=== PATIENT | female | born 1985 | race Caucasian/White ===

== ENCOUNTER 2019-11-14 11:03 | Emergency (ER) | payer OTHER, SELFPAY ==
--- NOTE | 2019-11-14 11:56 | ED.URI ---
HPI - URI/Sore Throat General Chief Complaint: Upper Respiratory Infection Stated Complaint: sore throat/cough Time Seen by Provider: 11/14/19 11:56 Source: patient and RN notes reviewed Mode of arrival: ambulatory Limitations: no limitations History of Present Illness HPI Narrative: A 34 y/o female, who is a nonsmoker and nondrinker, presents to the with a worsening sore throat for the past week. She reports an associated green productive cough and nasal congestion. She notes that swallowing aggravates her sore throat. She also notes she hasn't been able to sleep d/t her cough. She denies any fevers, ear ache, definite rhinorrhea,; or any other medical complaints at this time. 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 MD elicited complaint: cough, sore throat and nasal congestion Onset (ago): week(s) (1) Consistency: progressively worsening Description of mucous: green Exacerbating factors: swallowing Associated symptoms: denies other symptoms Related Data Allergies Allergy/AdvReac Type Severity Reaction Status Date / Time doxycycline Allergy Unknown Verified 11/27/11 14:02 Sulfa (Sulfonamide Allergy Unknown Verified 11/27/11 14:03 Antibiotics) Review of Systems Review of Systems: Narrative: General/Constitutional: No weight loss,fever Eyes: N0: Redness,discharge Ears/Nose/Throat: No: Epistaxis,ear discharge, ear ache, or rhinorrhea. Reports a sore throat and nasal congestion. Respiratory: Denies: Hemoptysis. Reports a green productive cough. Gastrointestinal: No Vomiting, Bleeding-rectal Skin: No Lumps, eruption Neurologic: No Focal Weakness,Sz Hematologic: Denies: Petechiae/Purpura Psychiatric: No: Suicida ideationl All Other Systems: Reviewed and Negative [facility] Past Medical History Medical History (Updated 11/14/19 @ 14:17 by Bryan Griffiths MD) Healthy female Surgical History Surgical History (Updated 11/14/19 @ 12:04 by Milton Lopez) No history of previous surgery Family History Family History Mother Patient's mother is in good health Social History Social History Smoking status: Never smoker Second hand tobacco smoke exposure: No Alcohol intake: never Gender identity (if verbalized by the patient): Female Exam Narrative: Exam Narrative: General Appearance: Well appearing, Well nourished EYE: PERRLA, Conjunctiva clear Ears: Auditory canal normal, TM normal Nose: Rhinorrhea, Mucousal erythema Mouth/Throat: MM moist, Uvula midline, Pharyngeal erythema Neck: Supple, No adenopathy Respiratory: No respiratory distress, Breath sounds equal, Clear to auscultation Cardiovascular: RRR, No JVD Musculoskeletal: Non tender, Normal strength Skin: Warm, Dry Neurological: A&O x3, CN II-XII intact Psychiatric: Normal mood, Normal affect MDM - URI/Sore Throat Lab Data Labs: Strep Screen Presumptive Negative *(Reference Range: Negative)* Discharge Plan Discharge Clinical Impression: Pharyngitis Qualifiers: Pharyngitis/tonsillitis etiology: unspecified etiology Qualified Code(s): J02.9 - Acute pharyngitis, unspecified Patient Disposition: Home, Self-Care Condition: Stable Instructions: Antibiotic Form, Pharyngitis (ED) Prescriptions: New Lidocaine Viscous 2 % solution 5 ml MUCOUS MEM QID PRN (Reason: pain) Qty: 100 RF: 0 cefuroxime axetil 500 mg tablet 500 mg PO Q12H Qty: 14 RF: 0 codeine-guaifenesin 10-100 mg/5 mL liquid 7.5 ml PO Q6H PRN (Reason: cough) Qty: 118 RF: 0 Follow-up/Referrals: Mk Olsen DO [Primary Care Provider] - Discharge Date/Time: 11/14/19 12:05
== END 2019-11-14 12:05 | disposition home or self-care (01) ==
PROVIDERS: Emergency Provider Emergency Medicine; PCP Internal Medicine
DX: J02.9 Acute pharyngitis, unspecified (principal)
CPT/HCPCS: 87081; 87880; 99213; G0463

== ENCOUNTER → 2021-11-21 02:39 | Outpatient (CLI) | payer BC, SELFPAY ==
[2021-11-21 12:37] LABS: SARS-CoV-2 RNA PCR Negative
== END ==
PROVIDERS: PCP Physician Assistant; Visit Provider Internal Medicine Gastroenterology
DX: Z01.812 Encounter for preprocedural laboratory examination (principal); Z20.822 Contact with and (suspected) exposure to COVID-19
CPT/HCPCS: C9803; U0003; U0005

== ENCOUNTER 2021-11-24 01:20 | Day surgery (SDC) | payer BC, SELFPAY ==
[2021-11-13 13:15] VITALS: BMI 22.7
[2021-11-24 12:28] VITALS: BP 116/70; PULSE 75; RESP 20; TEMP 36.3; O2SAT 100; BMI 22.2
[2021-11-24] MEDS: LACTATED RINGERS 1,000 ML 150 ML IV CONT (12:30)
--- NOTE | 2021-11-24 13:08 | WPDANESEPPF ---
Anes - Initial Pre Proc Eval Procedure: Operation Date: 11/24/21 13:30 Proposed Procedures p Colonoscopy - Ronny Linder MD Date/Time: 11/24/21 13:08 Surgeon: Ronny Linder MD Pre Op Diagnosis: occult GI bleed Patient Data Age: 36 Gender: F Height: 1.78 m Weight: 70.4 kg Last Vital Signs Temp 97.4 F L 11/24/21 12:28 Pulse 75 11/24/21 12:28 Resp 20 11/24/21 12:28 BP 116/70 11/24/21 12:28 Pulse Ox 100 11/24/21 12:28 Allergies Allergy/AdvReac Type Severity Reaction Status Date / Time doxycycline Allergy Unknown Difficulty Verified 11/24/21 12:23 Breathing Sulfa (Sulfonamide Allergy Unknown Rash Verified 11/24/21 12:23 Antibiotics) Home Medications Medication Instructions Recorded Confirmed Type No Home Medications 11/13/21 11/24/21 History Patient hx anesthesia problems: none Family hx anesthesia problems: none Results Review: All pre-operative results and documents have been reviewed as part of the pre-operative evaluation. [facility] Past Medical History Medical History (Updated 11/15/19 @ 00:00 by Nay Smith) Healthy female Surgical History Surgical History (Updated 11/14/19 @ 12:04 by Milton Lopez) No history of previous surgery Family History Family History Mother Patient's mother is in good health Social History Social History Smoking status: Never smoker Second hand tobacco smoke exposure: No Alcohol intake: never Substance use: never Substance use type: does not use Living arrangements: with family Gender identity (if verbalized by the patient): Female Spiritual care concerns: No Anes - Eval Final PreProcedure Day of Procedure 11/24/21 13:08 Patient weight: normal Heart: regular rate and rhythm Lungs: clear to auscultation Airway: Mallampati scale class II Neurological: alert and oriented Last oral intake: >/= 8 hours ASA classification: II Emergent: no Anesthetic plan: proceed Anesthesia type and monitoring: general GIVS and standard monitoring Results Review: All pre-operative results and documents have been reviewed as part of the pre-operative evaluation. Informed Consent: The patient's anesthetic plan and its attendant risks and benefits were discussed with the patient/family/POA. Questions were solicited and answers provided to the satisfaction of the patient/family/POA.
--- NOTE | 2021-11-24 13:25 | PM.HPGS ---
History of Present Illness History of Present Illness Consent: Risks, benefits, and alternatives have been discussed and questions answered. Patient agrees to proceed with procedure. Chief complaint: occult GI bleed Narrative: Galina Holden is a 36 year old female with intermittent hematochezia after having BM, never had colonoscopy, no family history of CRC Review of Systems Constitutional: Constitutional: Denies headache(s) and Denies weakness Eyes: Eyes: Denies blurry vision ENT: Reports Normal hearing present, Denies headache(s) and Denies neck pain Cardiovascular: Cardiovascular: Denies chest pain and Denies dyspnea Respiratory: Respiratory: Denies dyspnea Gastrointestinal: Gastrointestinal: Reports no additional gastrointestinal complaints Genitourinary: Genitourinary: Denies dysuria Musculoskeletal: Musculoskeletal: Denies neck pain Integumentary/Breasts: Skin/Breast: Denies dry skin Neurologic: Reports Normal hearing present, Denies headache(s) and Denies weakness Psychiatric: Psychiatric: Denies anxiety Endocrine: Endocrine: Denies change in body appearance Hematologic/Lymphatic: Hematologic/Lymphatic: Denies easy bleeding Allergic/Immunologic: Allergic/Immunologic: Denies urticaria PMFSH Past Medical History Medical History (Updated 11/24/21 @ 13:25 by Ronny Linder MD) Healthy female Hematochezia Surgical History Surgical History (Updated 11/14/19 @ 12:04 by Milton Lopez) No history of previous surgery Family History Family History Mother Patient's mother is in good health Social History Social History Smoking status: Never smoker Second hand tobacco smoke exposure: No Alcohol intake: never Substance use: never Substance use type: does not use Living arrangements: with family Gender identity (if verbalized by the patient): Female Spiritual care concerns: No Meds Home Medications and Allergies Home Medications Medication Instructions Recorded Confirmed Type No Home Medications 11/13/21 11/24/21 History Allergies Allergy/AdvReac Type Severity Reaction Status Date / Time doxycycline Allergy Unknown Difficulty Verified 11/24/21 12:23 Breathing Sulfa (Sulfonamide Allergy Unknown Rash Verified 11/24/21 12:23 Antibiotics) Vital Signs Vital Signs - 24 hr 11/24/21 12:28 Temperature 97.4 F L Pulse Rate 75 Respiratory Rate 20 Blood Pressure 116/70 Pulse Oximetry 100 Exam Const: General: comfortable and no acute distress HENMT: General nose exam: Normal nares present Eyes: General: appearance normal, both eyes and all related structures Neck: Neck: no JVD Resp: Auscultation: clear to auscultation bilaterally Cardio: Rate: regular rate Rhythm: regular rhythm GI: Inspection: non-distended GI Palp: Yes Soft to palpation Skin: General skin exam: normal color Neuro: General: gait normal Speech: normal speech Extrem: General: normal to inspection Psych: Mental Status: mental status grossly normal Assessment and Plan Assessment and plan (1) Hematochezia: Code(s): K92.1 - Melena Status: Acute Assessment and Plan: will assess with colonoscopy
[2021-11-24 13:44] VITALS: BP 104/67; PULSE 78; RESP 19; O2SAT 99
[2021-11-24 13:54] VITALS: BP 98/52; PULSE 72; RESP 15; O2SAT 100
[2021-11-24 14:04] VITALS: BP 117/75; PULSE 72; RESP 20; O2SAT 100
== END 2021-11-24 14:12 | disposition home or self-care (01) ==
PROVIDERS: PCP Physician Assistant; Visit Provider Internal Medicine Gastroenterology
PROC: 0DJD8ZZ Inspection of Lower Intestinal Tract, Via Natural or Artificial Opening Endoscopic (ICD-10-PCS; CPT 45378; principal; 2021-11-24 13:30)
DX: K92.1 Melena (principal); K64.8 Other hemorrhoids
CPT/HCPCS: 45378; J2704; J7120

== ENCOUNTER 2022-12-12 10:20 | Emergency (ER) | payer BC, SELFPAY ==
[2022-12-12 10:43] VITALS: BP 104/64; PULSE 65; RESP 16; TEMP 36.9; O2SAT 100
--- NOTE | 2022-12-12 10:59 | ED.URI ---
HPI - URI/Sore Throat General Chief Complaint: Upper Respiratory Infection Stated Complaint: sorethroat Time Seen by Provider: 12/12/22 10:45 Source: patient Mode of arrival: ambulatory Limitations: no limitations History of Present Illness HPI Narrative: Ms. Holden is a 37-year-old female patient presenting to the clinic today with complaints of sore throat that started this morning. She denies any fever chills. Has had recurrent pharyngitis over the last several months and has been placed on 2 or 3 different antibiotics. States she just finished azithromycin 5 days ago. MD elicited complaint: sore throat and nasal congestion Related Data Allergies Allergy/AdvReac Type Severity Reaction Status Date / Time doxycycline Allergy Unknown Difficulty Verified 12/12/22 10:50 Breathing Sulfa (Sulfonamide Allergy Unknown Rash Verified 12/12/22 10:50 Antibiotics) Review of Systems Review of Systems: Pertinent positives per HPI. Patient denies any fever, chills, rash, headache, visual changes, dizziness, cough, shortness of breath, chest pain, palpitations, nausea, vomiting, diarrhea, constipation, abdominal pain, or any urinary issues. PMFSH Past Medical History Medical History Healthy female Hematochezia Surgical History Surgical History No history of previous surgery Family History Family History Mother Patient's mother is in good health Social History Social History Smoking status: Never smoker Second hand tobacco smoke exposure: No Alcohol intake: never Substance use: never Substance use type: does not use Living arrangements: with family Gender identity (if verbalized by the patient): Female Spiritual care concerns: No Comments At the time of my signature, I reviewed and agree with the nursing past medical, surgical, social, and family history. There is no relevant family history pertinent to the patient complaint. Exam Narrative: General: Well-developed, well nourished, in no apparent distress Head: Normocephalic, atraumatic Eyes: Pupils equally round and reactive to light bilaterally, EOM intact, sclera and conjunctive clear, no discharge, lids normal Ears: TMs intact and clear, ear canals clear, no drainage, grossly hearing normal. Nose: Nares patent, no discharge, no inflammation, no sinus tenderness. Mouth: Oral pharynx mildly red without lesions or masses, good dentition, MMM. Neck: Supple, trachea midline, no enlargement of anterior or posterior cervical nodes, no thyroid masses or goiter palpable. Cardio: Regular rate and rhythm, s1 and s2 normal, no murmur appreciated. Resp: Clear to auscultation bilaterally, no rhonchi, rales, wheezing or rubs Course Course Emergency Course: Portions of this record may have been created with voice recognition software. Level of Care: Express Care Visit Vital Signs Vital signs: Vital Signs Temperature 36.9 C 12/12/22 10:43 Pulse Rate 65 12/12/22 10:43 Respiratory Rate 16 12/12/22 10:43 Blood Pressure 104/64 12/12/22 10:43 Pulse Oximetry 100 12/12/22 10:43 Oxygen Delivery Room Air 12/12/22 10:43 Temperature 36.9 C 12/12/22 10:43 Pulse Rate 65 12/12/22 10:43 Respiratory Rate 16 12/12/22 10:43 Blood Pressure 104/64 12/12/22 10:43 Pulse Oximetry 100 12/12/22 10:43 Oxygen Delivery Room Air 12/12/22 10:43 Vital signs reviewed MDM - URI/Sore Throat MDM Narrative Medical decision making narrative: At the time of visit patient is resting comfortably on the exam table. Strep screen was obtained was negative in the clinic today. I suspect patient has viral pharyngitis. Supportive measures were discussed with the patient she voiced understanding
== END 2022-12-12 11:06 | disposition home or self-care (01) ==
PROVIDERS: Emergency Provider Nurse Practitioner Family; PCP Physician Assistant
DX: J02.9 Acute pharyngitis, unspecified (principal); N80.9 Endometriosis, unspecified
CPT/HCPCS: 87081; 87880; 99213; G0463